=== PATIENT | male | born 1940 ===

== ENCOUNTER → 2020-11-08 11:35 | Outpatient (CLI) | payer MEDICAID, SELFPAY ==
[2020-11-08 12:25] LABS: COVID19 -Nasal RAPID Negative (Negative)
== END ==
PROVIDERS: PCP Family Medicine; Visit Provider Specialist
DX: Z20.822 Contact with and (suspected) exposure to COVID-19 (principal)
CPT/HCPCS: 87635; C9803

== ENCOUNTER 2020-11-10 08:16 | Day surgery (SDC) | payer MEDICAID, SELFPAY ==
[2020-11-07 12:21] VITALS: BMI 29.0
[2020-11-10] VITALS (11 sets, daily range): BP systolic 129–191; BP diastolic 62–95; PULSE 74–85; RESP 13–18; TEMP 36.4–36.8; O2SAT 2–99; BMI 29.0
--- NOTE | 2020-11-10 | PATH_ITS ---
[facility] Accession Number: [id number] . 01 Material submitted: . bladder, trigone - TRANSURETHRAL RESECTION OF BLADDER TUMOR, LEFT TRIGONE . 01 Clinical history: . TURBT W/CYSTO . 02 Diagnosis: Left Trigone, Transurethral Resection: Papillary urothelial carcinoma, invasive. Histologic grade: High grade. Muscularis propria: Present. Lymphovascular invasion: Not identified. Perineural invasion:Present. Tumor extension: Tumor invades lamina propria and is focally suspicious for invasion into muscularis propria. Please see comment. MRV 11/14/2020 1445 Local . 02 Comment: No definite muscularis propria invasion is identified. However, a few foci suspicious for invasion are present. The differential diagnosis includes tangential sectioning in those fragments. . As part of routine clinical quality assurance associate, this case was also reviewed by Dr. Keita, who agrees with the interpretation. . 02 Electronically signed: . Yas Agudelo MD, Pathologist NPI- [id number] . 01 Gross description: . The specimen is received in formalin, labeled transurethral resection of bladder tumor left trigone, and consists of multiple louis-pink friable fragments of soft tissue and clotted blood measuring 4.5 x 5.0 x 2.5 cm in aggregate. The specimen is filtered and entirely submitted in cassettes A1-A4. ([id number]) /FRR 11/11/2020 1632 Local . 02 Pathologist provided ICD-10: C67.9 . 02 CPT . 018148 Performed at: 01 [facility] [address] [place] [address] Suite [facility], [place], [place] [id number] MD Fer Doty MD Phone: [phone] Performed at: 02 [facility] [id number] [place] [id number] MD Yas Agudelo MD Phone: [phone]
[2020-11-10] MEDS: LACTATED RINGERS 1,000 ML 42 ML IV ×2 (09:30→11:56)
--- NOTE | 2020-11-10 11:09 | PM.PREOP ---
Pre-operative Note Interval Note History & Physical reviewed/Exam performed by Physician: Yes Changes to H&P: No
[2020-11-10] MEDS: CEFAZOLIN VIAL 3 GM in SODIUM CHLORIDE 0.9% 100 ML 200 ML IV (11:25)
--- NOTE | 2020-11-10 11:47 | SUR.OPER ---
Lithotomy on padded OR bed, head on pillow, arms secured on padded arm boards at <90 degrees abduction. Legs secured in padded yellow fins stirrups.
[2020-11-10] MEDS: BELLADONNA/OPIUM SUPPOSITORIES 1 EACH PR (11:55)
[2020-11-10] MEDS: WATER FOR INJECTION,STERILE 20 ML, mitoMYcin 20 MG INTRAVESIC (12:15)
--- NOTE | 2020-11-10 13:01 | P.OP_ITS ---
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 Post-op diagnosis: same Procedure & Clinicians Procedure: 1. Transurethral resection bladder tumor (2-5 cm). 2. Installation mitomycin-C (20 mg). 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 Urethra-normal caliber without annular stricture or lesion. 2. External sphincter coapted with normal overlying urothelium. 3. 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 4. Bladder-severe trabeculation with cellule formation. There is a moderate- sized diverticulum with the proximate 22-24 Monegasque aperture emanating off the right posterior wall. Internal urothelium appeared normal. Right ureteral orifice in normal position with clear efflux. Left ureteral orifice was not identified before or after resection. Therefore, no opportunity to position a left ureteral stent. Closure Type: not applicable Specimen(s): other (Bladder neoplasm chips) Applied: catheter (24 M[address]gasque, 2 way, hematuria catheter) Estimated Blood Loss (mL): 5 Blood products transfused: none Procedure in detail: The patient was positioned supine and was administered general anesthesia. He was then repositioned in semi lithotomy and the lower abdomen, genitalia, and groin were then prepped and draped in sterile fashion. The 22 Monegasque panendoscope was then passed to the lower urinary tract with the findings as described above. The left ureteral orifice could not be identified. The panendoscope was then removed and the 25 Monegasque resectoscope was then advanced lower urinary tract under direct visualization. It was then fitted with the working element and resection loop. Meticulous resection was then undertaken. Meticulous hemostasis was conducted with the loop. Muscle fibers were identified in much of the base of the tumor. All resected tumor chips were irrigated or manually removed from the bladder proper. A final inspection of the bladder diverticulum failed identify any retained clot or tumor fragments. The bladder was then left partially filled and the resectoscope was removed. A 24 [place]que, 2 way, hematuria catheter was then inserted lower urinary tract. The balloon was inflated to 15 cc and the bladder contents drained. Next, a solution containing 20 mg of mitomycin-C were then instilled into the bladder says and the Bunch outflow plugged for anticipated 2 hour retention. Patient was then repositioned in supine, was awakened, and transferred to [facility] for transport to recovery. Complications: none Post-operative Condition: stable Disposition: PACU Plan for aftercare: Discharge home.
--- NOTE | 2020-11-10 14:17 | SUR.PHASEI ---
Assumed care of pt, pt denied pain, turning per Dr. Baig's instructions with assist from this RN. To OPD, stable.
--- NOTE | 2020-11-10 14:49 | SUR.PHASEII ---
Pt awaiting fowler to be drained, no c/o except for feeling the need to pee.
--- NOTE | 2020-11-10 16:37 | SUR.PHASEII ---
Late entry: Daughter wanrting to be present for d/c instuctions. Bladder drained as instructed after pt turned as instructed. 600ml yates colored and clear drained from fowler. Leg bag placed when daughter arrived, stated an understanding. Fowler bag replaced per daughter's request, shown again to go from leg bag to fowler bag. Both voiced an understanding, urine light red no clots. Some bleeding from penis, dionna pad placed. Supplies sent home with pt. Pt left when ready and left in stable
== END 2020-11-10 15:40 | disposition home or self-care (01) ==
PROVIDERS: PCP Family Medicine; Referring Provider Specialist; Visit Provider Specialist
PROC: 0TBB8ZZ Excision of Bladder, Via Natural or Artificial Opening Endoscopic (ICD-10-PCS; CPT 52235; principal; 2020-11-10 09:15)
PROC: (CPT 52235; 2020-11-10 09:15)
DX: C67.9 Malignant neoplasm of bladder, unspecified (principal); N40.1 Benign prostatic hyperplasia with lower urinary tract symptoms; N13.8 Other obstructive and reflux uropathy; Z85.46 Personal history of malignant neoplasm of prostate
CPT/HCPCS: 52235; J0330; J0690; J1100; J2405; J2704; J3010; J9280

== ENCOUNTER → 2020-12-19 16:24 | Outpatient (CLI) | payer MEDICAID, SELFPAY | PROVIDERS: PCP Family Medicine; Visit Provider Specialist | DX: C67.8 Malignant neoplasm of overlapping sites of bladder (principal); R30.0 Dysuria; N13.30 Unspecified hydronephrosis | CPT/HCPCS: 51798; 81002; 87086; 99215 ==